=== PATIENT | female | born 1965 | race Hispanic/Latino ===

== ENCOUNTER 2018-03-03 10:23 | Emergency (ER) | payer OTHER | END 2018-03-03 11:11 | disposition home or self-care (01) | LOC: EDH 10:23 | DX: J03.90 Acute tonsillitis, unspecified (principal); I10 Essential (primary) hypertension; Z88.0 Allergy status to penicillin; Z79.899 Other long term (current) drug therapy | CPT/HCPCS: 87880 ==

== ENCOUNTER → 2018-06-01 | Outpatient (CLI) | payer OTHER | END | disposition home or self-care (01) | LOC: RAH 14:31 | PROVIDERS: ATTEND Family Medicine | DX: Z12.31 Encounter for screening mammogram for malignant neoplasm of breast (principal) | CPT/HCPCS: 77067 ==

== ENCOUNTER 2018-12-12 08:46 | Emergency (ER) | payer OTHER ==
[2018-12-12 09:06] LABS: APPEARANCE,URINE Clear (CLEAR); BILIRUBIN,URINE Negative (NEGATIVE); COLOR,URINE Yellow (YELLOW); GLUCOSE, URINE (UA) Negative (NEGATIVE); KETONES,URINE Negative (NEGATIVE); LEUKOCYTE ESTERASE ,URINE Small (NEGATIVE); NITRATE,URINE Negative (NEGATIVE); OCCULT BLOOD,URINE Moderate (NEGATIVE); PROTEIN,URINE Negative (NEGATIVE)
[2018-12-12 09:13] LABS: BACTERIA,URINE Rare /HPF (None Seen); MUCUS,URINE Few LPF (None Seen); SQUAMOUS EPITHELIAL CELL,UR Few /HPF (0-2)
[2018-12-12] MEDS ORDERED: SODIUM CHLORIDE 0.9% 1000ML 1,000 ML IV ONE (09:22)
[2018-12-12 09:38] LABS: BASOPHILS % (AUTO) 0.6 % (0.0-5.0); EOSINOPHILS % (AUTO) 3.4 % (0.0-8.0); HEMATOCRIT 40.3 % (36-48); LYMPHOCYTES % (AUTO) 37.5 % (21.0-51.0); MEAN CORPUSCULAR HEMOGLOBIN 31.4 pg (27.0-33.0); MEAN CORPUSCULAR HGB CONC 33.3 g/dL (32.0-36.0); MEAN CORPUSCULAR VOLUME 94.1 fL (79-99); MONOCYTES % (AUTO) 7.4 % (3.0-13.0); NEUTROPHILS % (AUTO) 51.1 % (40.0-77.0); PLATELET COUNT (AUTO) 257 K/uL (130-400); RED BLOOD CELL COUNT(AUTO) 4.28 MIL/uL (4.00-5.50); RED CELL DISTRIBUTION WIDTH 13.1 % (11.0-15.5); WHITE BLOOD COUNT (AUTO) 4.9 K/uL (4.8-10.8)
[2018-12-12 09:50] LABS: CREATININE 0.8 mg/dL (0.5-1.5); POTASSIUM 4.1 mmol/L (3.5-5.1)
[2018-12-12] MEDS ORDERED: IOHEXOL-350 75 ML VIAL IV ONE (10:04)
== END 2018-12-12 12:26 | disposition home or self-care (01) ==
LOC: EDH 08:46
DX: N23 Unspecified renal colic (principal); R19.7 Diarrhea, unspecified; I10 Essential (primary) hypertension; Z88.0 Allergy status to penicillin; Z98.890 Other specified postprocedural states
CPT/HCPCS: 36415; 74177; 80048; 81001; 85025; 96360; 96361; 99285; J7030; Q9967

== ENCOUNTER 2019-03-21 09:51 | Emergency (ER) | payer OTHER | END 2019-03-21 10:44 | disposition home or self-care (01) | LOC: EDH 09:51 | DX: J02.8 Acute pharyngitis due to other specified organisms (principal); B97.89 Other viral agents as the cause of diseases classified elsewhere; I10 Essential (primary) hypertension; Z88.0 Allergy status to penicillin; Z98.890 Other specified postprocedural states; Z79.899 Other long term (current) drug therapy | CPT/HCPCS: 87880 ==

== ENCOUNTER 2019-07-03 08:27 | Emergency (ER) | payer OTHER ==
[2019-07-03 08:48] LABS: RAPID GROUP A STREP NEGATIVE (NEGATIVE)
== END 2019-07-03 10:21 | disposition home or self-care (01) ==
LOC: EDH 08:27
DX: J10.1 Influenza due to other identified influenza virus with other respiratory manifestations (principal); Z88.0 Allergy status to penicillin; I10 Essential (primary) hypertension
CPT/HCPCS: 87804; 87880

== ENCOUNTER → 2020-01-27 | Outpatient (CLI) | payer OTHER ==
[2020-01-27 12:21] LABS: BASOPHILS % (AUTO) 0.3 % (0.0-5.0); HEMATOCRIT 42.7 % (36-48); LYMPHOCYTES % (AUTO) 23.6 % (21.0-51.0); MEAN CORPUSCULAR HEMOGLOBIN 30.9 pg (27.0-33.0); MEAN CORPUSCULAR HGB CONC 32.1 g/dL (32.0-36.0); MEAN CORPUSCULAR VOLUME 96.4 fL (79-99); MONOCYTES % (AUTO) 4.7 % (3.0-13.0); NEUTROPHILS % (AUTO) 70.1 % (40.0-77.0); PLATELET COUNT (AUTO) 299 K/uL (130-400); RED BLOOD CELL COUNT(AUTO) 4.43 MIL/uL (4.00-5.50); RED CELL DISTRIBUTION WIDTH 12.7 % (11.0-15.5); WHITE BLOOD COUNT (AUTO) 7.2 K/uL (4.8-10.8)
[2020-01-27 12:48] LABS: ALBUMIN 4.4 g/dL (3.5-5.0); BILIRUBIN,TOTAL 0.7 mg/dL (0.2-1.0); CREATININE 0.8 mg/dL (0.5-1.5); POTASSIUM 3.5 mmol/L (3.5-5.1); THYROID STIMULATING HORMONE 2.83 uIU/mL (0.36-3.74); TOTAL PROTEIN, SERUM 8.4 g/dL (6.0-8.3)
== END | disposition home or self-care (01) ==
LOC: LAB 09:48
PROVIDERS: ATTEND Family Medicine
DX: Z00.00 Encounter for general adult medical examination without abnormal findings (principal)
CPT/HCPCS: 36415; 80053; 80061; 82270; 82306; 83036; 84443; 85025

== ENCOUNTER 2020-10-02 11:46 | Emergency (ER) | payer OTHER ==
[2020-10-02] MEDS ORDERED: KETOROLAC TROMETHAMINE 60 MG/2 ML VIAL ONE (12:12)
== END 2020-10-02 12:49 | disposition home or self-care (01) ==
LOC: EDH 11:46
DX: S40.012A Contusion of left shoulder, initial encounter (principal); R03.0 Elevated blood-pressure reading, without diagnosis of hypertension; Z88.0 Allergy status to penicillin; W18.39XA Other fall on same level, initial encounter; Y93.89 Activity, other specified; Y92.89 Other specified places as the place of occurrence of the external cause; Y99.8 Other external cause status
CPT/HCPCS: 73030; 96372; 99283; J1885

== ENCOUNTER → 2021-06-19 | Outpatient (CLI) | payer OTHER ==
[~2021-06-19] MED LIST: ACET1TAB25 PO; IBUP-2070 PO
== END | disposition home or self-care (01) ==
LOC: RAH 08:06
PROVIDERS: ATTEND Family Medicine
DX: Z12.31 Encounter for screening mammogram for malignant neoplasm of breast (principal); Z00.01 Encounter for general adult medical examination with abnormal findings
CPT/HCPCS: 77067

== ENCOUNTER 2021-06-22 10:18 | Emergency (ER) | payer OTHER ==
[~2021-06-22] VITALS: Ht 165.1 cm; Wt 74.8 kg
[2021-06-22 10:25] VITALS: BP 154/79
[2021-06-22 10:58] LABS: APPEARANCE,URINE Clear (CLEAR); BILIRUBIN,URINE Negative (NEGATIVE); COLOR,URINE Yellow (YELLOW); GLUCOSE, URINE (UA) Negative (NEGATIVE); KETONES,URINE Negative (NEGATIVE); LEUKOCYTE ESTERASE ,URINE Negative (NEGATIVE); NITRATE,URINE Negative (NEGATIVE); OCCULT BLOOD,URINE Negative (NEGATIVE); PH,URINE 5.5 (5.0-8.0); PROTEIN,URINE Negative (NEGATIVE); UROBILINOGEN,URINE 0.2 mg/dL (0.2-1.0)
[2021-06-22] MEDS ORDERED: IBUP-2070 PO (12:45)
[2021-06-22] MEDS ORDERED: ACET1TAB25 PO (12:45)
== END 2021-06-22 12:52 | disposition home or self-care (01) ==
LOC: EDH 10:18
DX: N23 Unspecified renal colic (principal); I10 Essential (primary) hypertension; Z88.0 Allergy status to penicillin; Z79.1 Long term (current) use of non-steroidal anti-inflammatories (NSAID); Z87.442 Personal history of urinary calculi
CPT/HCPCS: 74176; 81003

== ENCOUNTER 2022-03-13 10:05 | Emergency (ER) | payer OTHER ==
[~2022-03-13] VITALS: Ht 165.1 cm; Wt 81.6 kg
[~2022-03-13 10:05] MED LIST changes: +ACET-2079 PO; -ACET1TAB25 PO
[2022-03-13 10:40] LABS: BASOPHILS % (AUTO) 0.4 % (0.0-5.0); EOSINOPHILS % (AUTO) 1.5 % (0.0-8.0); HEMATOCRIT 43.2 % (36-48); LYMPHOCYTES % (AUTO) 23.2 % (21.0-51.0); MEAN CORPUSCULAR HEMOGLOBIN 30.3 pg (27.0-33.0); MEAN CORPUSCULAR HGB CONC 32.2 g/dL (32.0-36.0); MEAN CORPUSCULAR VOLUME 94.1 fL (79-99); MONOCYTES % (AUTO) 4.9 % (3.0-13.0); NEUTROPHILS % (AUTO) 69.7 % (40.0-77.0); PLATELET COUNT (AUTO) 308 K/uL (130-400); RED BLOOD CELL COUNT(AUTO) 4.59 MIL/uL (4.00-5.50); RED CELL DISTRIBUTION WIDTH 12.6 % (11.0-15.5); WHITE BLOOD COUNT (AUTO) 7.4 K/uL (4.8-10.8)
[2022-03-13 10:50] LABS: CREATININE 0.9 mg/dL (0.5-1.5); POTASSIUM 3.7 mmol/L (3.5-5.1)
[2022-03-13 10:55] LABS: ALBUMIN 3.8 g/dL (3.5-5.0); TOTAL PROTEIN, SERUM 7.8 g/dL (6.0-8.3)
[2022-03-13 11:09] LABS: APPEARANCE,URINE CLEAR (CLEAR); BILIRUBIN,URINE NEGATIVE (NEGATIVE); COLOR,URINE LIGHT-YELLOW (YELLOW); GLUCOSE, URINE (UA) NEGATIVE (NEGATIVE); KETONES,URINE NEGATIVE (NEGATIVE); LEUKOCYTE ESTERASE ,URINE NEGATIVE Leu/uL (NEGATIVE); NITRATE,URINE NEGATIVE (NEGATIVE); OCCULT BLOOD,URINE NEGATIVE (NEGATIVE); PH,URINE 5.5 (5.0-8.0); PROTEIN,URINE NEGATIVE (NEGATIVE); UROBILINOGEN,URINE 0.2 mg/dL (0.2-1.0)
[2022-03-13] MEDS ORDERED: ONDANSETRON ODT 4MG TAB SL ONE (11:30)
[2022-03-13] MEDS ORDERED: MECLIZINE HCL 25 MG TABLET PO ONE (11:30)
[2022-03-13] MEDS ORDERED: MECL-160 PO (12:56)
[2022-03-13] MEDS ORDERED: LISI10TA24 PO (12:56)
[2022-03-13] MEDS ORDERED: ACETAMINOPHEN 500 MG TABLET PO ONE (13:00)
[2022-03-13 13:25] VITALS: BP 168/85
== END 2022-03-13 13:42 | disposition home or self-care (01) ==
LOC: EDH 10:05
DX: R42 Dizziness and giddiness (principal); I10 Essential (primary) hypertension; R51.9 Headache, unspecified; Z88.0 Allergy status to penicillin; Z87.442 Personal history of urinary calculi; Z98.890 Other specified postprocedural states
CPT/HCPCS: 36415; 80053; 81003; 85025; 93005

== ENCOUNTER → 2023-09-15 | Outpatient (CLI) | payer OTHER ==
[~2023-09-15] MED LIST changes: +LISI10TA24 PO; +MECL-302 PO
== END | disposition home or self-care (01) ==
LOC: RAH 11:59
PROVIDERS: ATTEND Family Medicine
DX: Z12.31 Encounter for screening mammogram for malignant neoplasm of breast (principal); R92.30 Dense breasts, unspecified
CPT/HCPCS: 77067